=== PATIENT | male | born 1960 ===

== ENCOUNTER 2023-10-30 06:15 | Day surgery (SDC) | payer BC, SELFPAY ==
[2023-10-30 06:28] VITALS: BMI 30.5
[2023-10-30 06:29] VITALS: BP 137/80
[2023-10-30 06:35] VITALS: BMI 30.5
[2023-10-30] MEDS: TYLENOL 1000 MG PO (06:38)
[2023-10-30] MEDS: NORMOSOL-R 1000 IV (06:42)
[2023-10-30 08:49] VITALS: BP 126/74
[2023-10-30 09:00] VITALS: BP 131/82
[2023-10-30 09:15] VITALS: BP 143/87
[2023-10-30 09:23] VITALS: BP 128/81
--- NOTE | 2023-10-30 11:20 | W.IMMPOSTOP ---
Surgical Immed Post Op Note
-
Primary Surgeon: Yanelis
Assisting Surgeon: See PGY1
Pre-op Diagnosis: Lipoma of right shoulder and anterior abdomen
Post-op Diagnosis: Same
Procedure Performed: Excision of lipoma x2
Anesthesia Type: MAC local
Specimen / Cultures: Lipoma of right shoulder and abdomen
Estimated Blood Loss: 5cc
Complications: None immediate
Operative Findings: 5x3cm abdomen lipoma, [id number] right shoulder lipoma, both excised in toto
--- NOTE | 2023-10-30 11:23 | OR.RPT ---
Operative Report
Operative Report
Primary Surgeon: Yanelis
Assisting Surgeon: See PGY1
Pre-op Diagnosis: Lipoma of right shoulder and anterior abdomen
Post-op Diagnosis: Same
Procedure Performed: Excision of lipoma x2
Anesthesia Type: MAC local
Specimen / Cultures: Lipoma of right shoulder and abdomen
Estimated Blood Loss: 5cc
Complications: None immediate
Operative Findings: [id number] abdomen lipoma, [id number] right shoulder lipoma, both excised in toto
Date of Surgery: 10/30/23
PROCEDURE: After informed consent was obtained, the patient was brought to the operative suite and placed in left lateral decubitus position on the operating table. The patient was sedated, prepped and draped in the usual sterile manner and an
adequate local anesthetic was administered using lidocaine 1% with epinephrine.
A full thickness elliptical incision was made over the mass and carried down to the capsule. The capsule was freed from surrounding structures with blunt and sharp dissection as well as electrocautery. The lipoma was delivered through the wound and
deep attachments were controlled with electrocautery. The mass was passed off the table as specimen. The wound was then irrigated with copious sterile saline, and hemostasis was obtained using Bovie electrocautery. The skin was approximated with 3-0
Vicryl deep dermal interrupted sutures and 4-0 monocryl suture in a subcuticular fashion. Topical skin glue was then applied.
The patient was then repositioned supine and the abdomen was prepped and draped in the standard sterile fashion. The above process was repeated for a single lipoma of the anterior abdominal wall. All surgical counts were reported as correct.
The patient tolerated the procedure well and was taken to the PACU in stable condition. I was present for and performed all ricardo portions of the procedure. The resident assisted with exposure and skin closure.
== END 2023-10-30 09:45 | disposition home or self-care (01) ==
LOC: SDS 06:15
PROVIDERS: ATTENDING PHYSICIAN Surgery
DX: D17.21 Benign lipomatous neoplasm of skin and subcutaneous tissue of right arm (principal); D17.1 Benign lipomatous neoplasm of skin and subcutaneous tissue of trunk
CPT/HCPCS: 22903; 23071; 88304